=== PATIENT | male | born 1955 | race Caucasian/White ===

== ENCOUNTER → 2019-10-12 | Outpatient (CLI) | payer OTHER | LOC: CAT 07:59 | PROVIDERS: ATTEND Family Medicine | DX: J32.0 Chronic maxillary sinusitis (principal); R59.0 Localized enlarged lymph nodes; J34.2 Deviated nasal septum; E03.9 Hypothyroidism, unspecified ==

== ENCOUNTER → 2019-12-14 | Outpatient (CLI) | payer OTHER | LOC: SJCVC 14:28 → SJCVCIMAG 14:28 | PROVIDERS: ATTEND Internal Medicine | DX: I08.2 Rheumatic disorders of both aortic and tricuspid valves (principal); I27.20 Pulmonary hypertension, unspecified ==